=== PATIENT | male | born 1980 | race Caucasian/White ===

== ENCOUNTER 2017-02-13 19:10 | Emergency (ER) | payer BC ==
[~2017-02-13] VITALS: Ht 180.3 cm; Wt 104.3 kg
[2017-02-13] MEDS ORDERED: ZOFRAN4 MG PO (19:30)
[2017-02-13 19:34] LABS: BASO % 0.3 % (0.0-1.0); EOS % 0.2 % (1.0-4.0); HEMATOCRIT 46.6 % (42.0-52.0); HEMOGLOBIN 16.1 g/dl (14.0-18.0); LYMPH # 1.8 10*3/uL (1.3-4.4); LYMPH % 30.3 % (27.0-41.0); MEAN CELL VOLUME 84.4 fl (80.0-94.0); MEAN CORPUSCULAR HGB 29.2 pg (27.0-31.0); MEAN CORPUSCULAR HGB CONC 34.5 g/dl (33.0-37.0); MEAN PLATELET VOLUME 9.2 fl (9.6-12.3); MONO # 0.9 10*3/uL (0.1-1.0); MONO % 16.3 % (3.0-9.0); NEUT % 52.6 % (47.0-73.0); PLATELET COUNT AUTOMATED 252 10*3/uL (130-400); RED BLOOD COUNT 5.52 10*6/uL (4.50-5.90); RED CELL DISTRI WIDTH 11.8 % (0-14.5); WHITE BLOOD COUNT 5.8 10*3/uL (4.8-10.8)
[2017-02-13] MEDS ORDERED: CLARITIN10 MG PO (19:38)
[2017-02-13] MEDS ORDERED: FLONASE ALLERG9.9 ML NAS (19:38)
[2017-02-13 19:53] LABS: ALBUMIN 3.7 gm/dl (3.1-4.5); BUN 19 mg/dl (7-24); CHLORIDE 104 mmol/L (98-107); CREATININE 1.11 mg/dL (0.70-1.30); SGOT/AST 42 IU/L (3-35); SGPT/ALT 124 U/L (12-78); SODIUM 137 mmol/L (136-145)
[2017-02-13 19:54] LABS: ALKALINE PHOSPHATASE 61 U/L (45-117)
== END 2017-02-13 20:09 | disposition home or self-care (01) ==
LOC: ED 19:10
PROVIDERS: Nurse Practitioner Family
DX: B34.9 Viral infection, unspecified (principal); R03.0 Elevated blood-pressure reading, without diagnosis of hypertension; R79.89 Other specified abnormal findings of blood chemistry

== ENCOUNTER 2024-05-26 15:44 | Emergency (ER) | payer SELFPAY ==
[~2024-05-26] VITALS: Ht 177.8 cm; Wt 117.9 kg
[~2024-05-26 15:44] MED LIST: CLARITIN10 MG PO; FLONASE ALLERG9.9 ML NAS; ZOFRAN4 MG PO
[2024-05-26] MEDS ORDERED: CEPHALEXIN 500 MG CAP PO ONE (16:35)
[2024-05-26] MEDS ORDERED: Tdap Vaccine 0.5 ML SYR (Adult Vaccine) IM ONE (16:35)
[2024-05-26] MEDS ORDERED: CEPHALEXIN500 M1 PO (17:37)
[2024-05-26] MEDS ORDERED: DERMABOND 1 EA APPL T ONE (17:42)
== END 2024-05-26 17:41 | disposition home or self-care (01) ==
LOC: ED
DX: S62.662B Nondisplaced fracture of distal phalanx of right middle finger, initial encounter for open fracture (principal); Z79.899 Other long term (current) drug therapy; W23.0XXA Caught, crushed, jammed, or pinched between moving objects, initial encounter; Y93.89 Activity, other specified; Y92.89 Other specified places as the place of occurrence of the external cause; Y99.8 Other external cause status